=== PATIENT | male | born 1955 | race Caucasian/White ===

== ENCOUNTER 2022-12-10 08:40 | Day surgery (SDC) | payer OTHER ==
[~2022-12-10] VITALS: Ht 172.7 cm; Wt 68.9 kg
[2022-12-10] MEDS ORDERED: OMEP20ER (08:57)
[2022-12-10] MEDS ORDERED: GUAI600T33 (08:58)
[2022-12-10 11:44] VITALS: BP 133/84
== END 2022-12-10 11:47 | disposition home or self-care (01) ==
LOC: ORSCSDS 08:40
PROVIDERS: Student in an Organized Health Care Education/Training Program
PROC: 0DBP8ZX Excision of Rectum, Via Natural or Artificial Opening Endoscopic, Diagnostic (ICD-10-PCS; principal; 2022-12-10 10:00)
PROC: 0DB68ZX Excision of Stomach, Via Natural or Artificial Opening Endoscopic, Diagnostic (ICD-10-PCS; principal; 2022-12-10 10:00)
PROC: 0DBN8ZX Excision of Sigmoid Colon, Via Natural or Artificial Opening Endoscopic, Diagnostic (ICD-10-PCS; principal; 2022-12-10 10:00)
PROC: 0DB58ZX Excision of Esophagus, Via Natural or Artificial Opening Endoscopic, Diagnostic (ICD-10-PCS; principal; 2022-12-10 10:00)
PROC: 0DBH8ZX Excision of Cecum, Via Natural or Artificial Opening Endoscopic, Diagnostic (ICD-10-PCS; principal; 2022-12-10 10:00)
DX: Z12.11 Encounter for screening for malignant neoplasm of colon (principal); R11.2 Nausea with vomiting, unspecified; D12.5 Benign neoplasm of sigmoid colon; K63.5 Polyp of colon; K62.1 Rectal polyp; K57.30 Diverticulosis of large intestine without perforation or abscess without bleeding; B18.2 Chronic viral hepatitis C; K64.8 Other hemorrhoids; Z79.899 Other long term (current) drug therapy
CPT/HCPCS: 88305; 88342; J2704; J7120

== ENCOUNTER → 2023-12-30 | Outpatient (CLI) | payer OTHER ==
[~2023-12-30] MED LIST: GUAI600T33; OMEP20ER
== END ==
LOC: LAB SHORT 09:22 → LAB 09:22
DX: R22.32 Localized swelling, mass and lump, left upper limb (principal)
CPT/HCPCS: 88304

== ENCOUNTER 2024-02-14 12:05 | Emergency (ER) | payer OTHER ==
[~2024-02-14] VITALS: Ht 172.7 cm; Wt 68.0 kg
[2024-02-14 12:15] VITALS: BP 100/58
[2024-02-14] MEDS ORDERED: Bactrim Ds Tab1 EACH PO (12:20)
[2024-02-14] MEDS ORDERED: CEPH500 PO (12:20)
== END 2024-02-14 12:19 | disposition home or self-care (01) ==
LOC: ER 12:05
DX: L03.113 Cellulitis of right upper limb (principal); Z79.899 Other long term (current) drug therapy
CPT/HCPCS: 99282

== ENCOUNTER → 2024-05-02 | Outpatient (CLI) | payer OTHER ==
[~2024-05-02] MED LIST changes: +Bactrim Ds Tab1 EACH PO; +CEPH500 PO
[2024-05-02 07:58] LABS: Source, Urine Clean Catch
[2024-05-02 12:50] LABS: Appearance, Urine Clear (Clear); Bilirubin, Urine Neg (Neg); Blood, Urine Neg (Neg); Color, Urine Yellow (P-Yellow); Glucose Qualitative, Urine Neg (Neg); Ketones, Urine Neg (Neg); Leukocyte Esterase, Urine Neg (Neg); Nitrite, Urine Neg (Neg); Protein, Urine Neg (Neg); Urobilinogen, Urine NORM (Normal)
== END ==
LOC: LAB SHORT 06:45 → LAB 06:45
PROVIDERS: Family Medicine
DX: N20.0 Calculus of kidney (principal)
CPT/HCPCS: 81003

== ENCOUNTER 2025-04-16 07:38 | Day surgery (SDC) | payer OTHER ==
[~2025-04-16] VITALS: Ht 170.2 cm; Wt 67.1 kg
[2025-04-16] MEDS ORDERED: CefTRIAXone 2000 MG Vial ONE (07:57)
[2025-04-16] MEDS ORDERED: METO25ER PO (08:09)
[2025-04-16] MEDS ORDERED: MULTI-VITAMIN1 EAC2 (08:09)
[2025-04-16] MEDS ORDERED: Buspirone HCl15 MG PO (08:10)
[2025-04-16] MEDS ORDERED: PERCOCET 10-321 EA10 PO (08:11)
[2025-04-16] MEDS ORDERED: Midazolam HCl 1MG / ML 2ML Vial ONE (09:31)
[2025-04-16] MEDS ORDERED: Bupivacaine HCl 0.25% 30 ML Injection ONE (09:31)
--- NOTE | 2025-04-16 09:37 | NUR ---
04/16/[address] NOTIFIED FACE TO FACE AT BESIDE OF PT FACIAL FX SURGERIES/REPAIRS X3
[2025-04-16] MEDS ORDERED: FentaNYL Citrate 50 MCG/ML 2 ML Injection ONE (09:52)
[2025-04-16] MEDS ORDERED: Rocuronium Bromide 10 MG/ML 5ML Injection IV ONE (09:52)
[2025-04-16] MEDS ORDERED: Ondansetron HCl 2 MG / ML 2ML Vial ONE (10:13)
[2025-04-16] MEDS ORDERED: Dexamethasone Sod Phos 10 MG/ML 1ML VIAL ONE (10:13)
[2025-04-16] MEDS ORDERED: ePHEDrine Sulfate 50 MG/ML 1ML Injection ONE ×2 (10:13→10:26)
[2025-04-16 12:04] VITALS: BP 142/74
--- NOTE | 2025-04-16 13:05 | NUR ---
04/16/25 Toan Solano RECEIVED REPORT FROM DRAKE MOON. PT DENIES PAIN AND NAUSEA AT THIS TIME. PT AGREEABLE TO D/C HOME.
== END 2025-04-16 13:03 | disposition home or self-care (01) ==
LOC: ORSCSDS 07:38
PROVIDERS: Orthopaedic Surgery
PROC: 0RNJ4ZZ Release Right Shoulder Joint, Percutaneous Endoscopic Approach (ICD-10-PCS; principal; 2025-04-16 09:00)
PROC: 0LS34ZZ Reposition Right Upper Arm Tendon, Percutaneous Endoscopic Approach (ICD-10-PCS; principal; 2025-04-16 09:00)
DX: M75.121 Complete rotator cuff tear or rupture of right shoulder, not specified as traumatic (principal); M75.21 Bicipital tendinitis, right shoulder; M75.41 Impingement syndrome of right shoulder; I10 Essential (primary) hypertension; Z79.899 Other long term (current) drug therapy
CPT/HCPCS: C1713; J0166; J0696; J1100; J2250; J2405; J2704; J3010; J7120

== ENCOUNTER 2025-05-17 09:34 | Emergency (ER) | payer OTHER ==
[~2025-05-17] VITALS: Ht 182.9 cm; Wt 72.6 kg
[~2025-05-17 09:34] MED LIST changes: +Buspirone HCl15 MG PO; +METO25ER PO; +MULTI-VITAMIN1 EAC2; +PERCOCET 10-321 EA10 PO
[2025-05-17] MEDS ORDERED: Morphine Sulfate 10 MG/ML 1MLSYR IV ONE (10:40)
[2025-05-17] MEDS ORDERED: NS 1,000 ML IV SCH (10:40)
[2025-05-17] MEDS ORDERED: Ondansetron HCl 2 MG / ML 2ML Vial IV ONE (10:45)
[2025-05-17] MEDS ORDERED: Ketorolac Tromethamine 15mg Vial IV ONE (10:45)
[2025-05-17 11:40] LABS: BASOPHILS ABSOLUTE AUTO 0.03 K/mm3 (0.00-0.23); BASOPHILS PERCENT AUTO 0 % (0-2); EOSINOPHILS ABSOLUTE AUTO 0.03 K/mm3 (0.00-0.68); EOSINOPHILS PERCENT AUTO 0 % (0-6); Hematocrit 44.6 % (37.0-53.0); Hemoglobin 15.9 g/dL (13.5-17.5); IMMATURE GRAN ABSOLUTE AUTO 0.04 K/mm3 (0.00-0.10); IMMATURE GRAN PERCENT AUTO 0 % (0-1); LYMPHOCYTES ABSOLUTE AUTO 1.05 K/mm3 (0.84-5.20); LYMPHOCYTES PERCENT AUTO 9 % (21-46); MONOCYTES ABSOLUTE AUTO 0.48 K/mm3 (0.16-1.47); MONOCYTES PERCENT AUTO 4 % (4-13); Mean Corpuscular HGB Conc 35.7 g/dL (31.5-36.5); Mean Corpuscular Volume 90 fL (80-100); NEUTROPHILS ABSOLUTE AUTO 9.87 K/mm3 (1.96-9.15); NEUTROPHILS PERCENT AUTO 86 % (41-73); NRBC ABSOLUTE 0.00 K/mm3 (0.00-0.02); NRBC Auto 0.0 /100 WBC (0.0-0.2); Platelet Count 162 K/mm3 (150-400); RDW Coefficient Variation 11.9 % (11.7-14.2); RDW Standard Deviation 38.7 fL (35.1-46.3)
[2025-05-17 12:15] LABS: Alanine Aminotransfer (ALT/SGP 24.0 U/L (12-78); Albumin, Blood 4.2 g/dL (3.4-5.0); Albumin/Globulin Ratio 1.2 (0.8-1.8); Anion Gap 9.0 mmol/L (3-11); Aspartate Aminotrans (AST/SGOT 18.0 U/L (12-37); Bilirubin, Total 0.4 mg/dL (0.1-1.0); Blood Urea Nitrogen 17.0 mg/dL (8-24); CO2, Blood 24.0 mmol/L (21-32); Calcium, Blood 9.2 mg/dL (8.5-10.1); Chloride, Blood 108.0 mmol/L (98-108); Creatinine, Blood 0.92 mg/dL (0.60-1.20); Globulin, Blood 3.5 g/dL (2.2-4.0); Glucose, Blood 115.0 mg/dL (70-99); Magnesium, Blood 2.0 mg/dL (1.6-2.4); Potassium, Blood 3.5 mmol/L (3.5-5.5); Sodium, Blood 137.0 mmol/L (136-145); Total Protein, Blood 7.7 g/dL (6.4-8.2)
[2025-05-17] MEDS ORDERED: HYDROmorphone HCl/Pf 1MG SYR IV ONE (13:00)
[2025-05-17 14:28] LABS: Source, Urine Clean Catch
[2025-05-17 14:31] LABS: Bilirubin, Urine Neg (Neg); Color, Urine Yellow (P-Yellow); Glucose Qualitative, Urine Neg (Neg); Ketones, Urine 1+ (Neg); Leukocyte Esterase, Urine Neg (Neg); Protein, Urine 2+ (Neg); Specific Gravity, Urine 1.020 (1.003-1.022); Urobilinogen, Urine NORM (Normal)
[2025-05-17 14:39] LABS: Red Blood Cells, Urine 50-100 /hpf (0-2); White Blood Cells, Urine 0-2 /hpf (0-5)
[2025-05-17] MEDS ORDERED: ONDA4 PO (14:54)
[2025-05-17] MEDS ORDERED: PERCOCET 10-321 EA13 PO (14:54)
[2025-05-17] MEDS ORDERED: KETO10 PO (14:54)
[2025-05-17] MEDS ORDERED: TAMS.4ER PO (14:54)
[2025-05-17 15:34] VITALS: BP 120/72
== END 2025-05-17 15:25 | disposition home or self-care (01) ==
LOC: ER 09:34
PROVIDERS: Emergency Medicine
DX: N13.2 Hydronephrosis with renal and ureteral calculous obstruction (principal); Z87.442 Personal history of urinary calculi; I10 Essential (primary) hypertension
CPT/HCPCS: 74176; 80053; 81001; 83690; 83735; 85025; 93005; 93010; 96361; 96374; 96375; 99284-25; J1171; J1885; J2270; J2405; J7030